=== PATIENT | female | born 1985 | race Caucasian/White ===

== ENCOUNTER 2017-06-20 03:42 | Inpatient (IN) ==
[2017-06-20] MEDS ORDERED: MORPHINE 2 MG/1 ML SYRINGE IV STA (04:43)
[2017-06-20] MEDS ORDERED: ONDANSETRON 4 MG/2 ML VIAL IV STA (04:43)
[2017-06-20] MEDS ORDERED: PIPERACILLIN/TAZOBACTAM 3,375 MG in SODIUM CHLORIDE 0.9% 100 ML IV STA (05:50)
[2017-06-20] MEDS ORDERED: cefOXitin 2,000 MG in SYRINGE 1 EACH IV ONE (06:33)
[2017-06-20] MEDS: metroNIDAZOLE INJ 500 MG in PREMIX 1 EACH IV SCH ×3 (07:15→21:55)
[2017-06-20] MEDS: DEXTROSE 5% LACTATED RINGERS 1,000 ML IV SCH ×2 (07:15→13:00)
[2017-06-20] MEDS ORDERED: INFLUENZA VIRUS VACCINE 0.5 ML SYRINGE IM ONE (07:36)
[2017-06-20] MEDS: MORPHINE 2 MG/1 ML SYRINGE IV PRN ×3 (08:37→21:55)
[2017-06-20] MEDS: PANTOPRAZOLE 40 MG TABLET PO SCH (09:28)
[2017-06-20] MEDS: PIPERACILLIN/TAZOBACTAM 3,375 MG in SODIUM CHLORIDE 0.9% 100 ML IV SCH ×2 (09:30→16:35)
[2017-06-20] MEDS: ONDANSETRON 4 MG/2 ML VIAL IV PRN ×2 (09:40→18:40)
[2017-06-20] MEDS ORDERED: TISSUE ADHESIVE 1 EACH APPLICATOR TOP ONE (10:54)
[2017-06-20] MEDS ORDERED: PROPOFOL 200 MG/20 ML VIAL IV ONE (14:20)
[2017-06-20] MEDS ORDERED: MIDAZOLAM 2 MG/2 ML VIAL ONE (14:21)
[2017-06-20] MEDS ORDERED: SEVOFLURANE 1 UNIT/15 MINUTE INH ONE (14:21)
[2017-06-20] MEDS ORDERED: fentaNYL 100 MCG/2 ML VIAL ONE ×2 (14:21)
[2017-06-20] MEDS ORDERED: NEOSTIGMINE 10 MG/10 ML VIAL ONE (14:22)
[2017-06-20] MEDS ORDERED: ROCURONIUM 100 MG/10 ML VIAL IV ONE (14:22)
[2017-06-20] MEDS ORDERED: KETOROLAC 30 MG/1 ML VIAL ONE (14:22)
[2017-06-20] MEDS ORDERED: GLYCOPYRROLATE 0.4 MG/2 ML VIAL ONE ×2 (14:22)
[2017-06-20] MEDS ORDERED: SUCCINYLCHOLINE 200 MG/10 ML VIAL ONE (14:22)
[2017-06-20] MEDS ORDERED: ONDANSETRON 4 MG/2 ML VIAL IV PRN ×2 (14:35→15:00)
[2017-06-20] MEDS ORDERED: HYDROmorphone 2 MG/1 ML VIAL IV PRN (14:35)
[2017-06-20] MEDS ORDERED: HYDROmorphone 2 MG/1 ML VIAL ONE (14:38)
[2017-06-20] MEDS ORDERED: ONDANSETRON 4 MG/2 ML VIAL ONE (14:38)
[2017-06-20] MEDS: HYDROmorphone 2 MG/1 ML VIAL IV PRN ×4 (14:40→15:00)
[2017-06-20] MEDS ORDERED: diphenhydrAMINE CAP 25 MG CAPSULE PO PRN (16:42)
[2017-06-21] MEDS: PIPERACILLIN/TAZOBACTAM 3,375 MG in SODIUM CHLORIDE 0.9% 100 ML IV SCH ×3 (00:45→18:18)
[2017-06-21] MEDS: ONDANSETRON 4 MG/2 ML VIAL IV PRN ×2 (00:45→14:13)
[2017-06-21] MEDS: metroNIDAZOLE INJ 500 MG in PREMIX 1 EACH IV SCH ×3 (05:50→22:51)
[2017-06-21] MEDS: DEXTROSE 5% LACTATED RINGERS 1,000 ML IV SCH ×4 (06:03→15:53)
[2017-06-21 06:14] LABS: Basophils % 0.1 % (0.0-0.8); Eosinophils % 0.4 % (0.00-10.9); Hematocrit 32.9 VOL% (35.7-47.0); Hemoglobin 10.8 GM/DL (12.0-16.0); Immature Granulocytes % 0.4 %; Immature Granulocytes Absolute 0.04 #; Lymphocytes # 1.3 10*3/uL (1.4-4.0); Lymphocytes % 13.3 % (21.3-54.2); Mean Corpuscular HGB Conc 32.8 GM/DL (32-36); Mean Corpuscular Hemoglobin 30 PG (27-34); Mean Corpuscular Volume 92.4 FL (87-102); Mean Platelet Volume 10.1 FL (9.6-12.0); Monocytes # 0.7 10*3/uL (0.11-0.8); Monocytes % 7.3 % (1.7-12.7); Neutrophils # 7.6 10*3/uL (1.4-7.4); Neutrophils % 78.5 % (38.7-73.9); Platelet Count 297 T/CUMM (130-400); Red Blood Count 3.56 MC/CUMM (3.8-5.5); White Blood Count 9.7 T/CUMM (4-12)
[2017-06-21 06:53] LABS: Albumin 2.9 G/DL (3.4-5.0); Bilirubin,Total 0.8 MG/DL (0.2-1.0); Calcium 8.6 MG/DL (8.5-10.1); Osmolality,Calculated 281.1 MOS/KG (273-304); Potassium 3.8 MMOL/L (3.5-5.1)
[2017-06-21] MEDS: MORPHINE 2 MG/1 ML SYRINGE IV PRN ×3 (08:33→20:27)
[2017-06-21] MEDS: PANTOPRAZOLE 40 MG TABLET PO SCH (08:33)
[2017-06-22] MEDS: ONDANSETRON 4 MG/2 ML VIAL IV PRN ×3 (00:35→19:15)
[2017-06-22] MEDS: MORPHINE 2 MG/1 ML SYRINGE IV PRN ×2 (00:37→06:53)
[2017-06-22] MEDS: PIPERACILLIN/TAZOBACTAM 3,375 MG in SODIUM CHLORIDE 0.9% 100 ML IV SCH ×3 (02:40→17:30)
[2017-06-22] MEDS: DEXTROSE 5% LACTATED RINGERS 1,000 ML IV SCH ×2 (05:08→11:00)
[2017-06-22 06:53] LABS: Basophils % 0.4 % (0.0-0.8); Eosinophils # 0.3 10*3/uL (0.0-0.87); Eosinophils % 3.1 % (0.00-10.9); Hematocrit 30.8 VOL% (35.7-47.0); Immature Granulocytes % 0.5 %; Immature Granulocytes Absolute 0.04 #; Lymphocytes # 2.4 10*3/uL (1.4-4.0); Lymphocytes % 28.7 % (21.3-54.2); Mean Corpuscular HGB Conc 32.5 GM/DL (32-36); Mean Corpuscular Hemoglobin 30 PG (27-34); Mean Corpuscular Volume 91.9 FL (87-102); Mean Platelet Volume 10.2 FL (9.6-12.0); Monocytes # 0.8 10*3/uL (0.11-0.8); Monocytes % 10.1 % (1.7-12.7); Neutrophils # 4.8 10*3/uL (1.4-7.4); Neutrophils % 57.2 % (38.7-73.9); Platelet Count 290 T/CUMM (130-400); Red Blood Count 3.35 MC/CUMM (3.8-5.5); Red Cell Distribution Width 13.2 % (9.3-17.3); White Blood Count 8.3 T/CUMM (4-12)
[2017-06-22] MEDS: metroNIDAZOLE INJ 500 MG in PREMIX 1 EACH IV SCH ×3 (06:53→22:16)
[2017-06-22 07:14] LABS: Calcium 7.9 MG/DL (8.5-10.1); Magnesium 1.9 MG/DL (1.8-2.4); Osmolality,Calculated 281.1 MOS/KG (273-304); Potassium 3.9 MMOL/L (3.5-5.1)
[2017-06-22] MEDS: PANTOPRAZOLE 40 MG TABLET PO SCH (08:22)
[2017-06-22] MEDS ORDERED: MAGNESIUM HYDROXIDE SUSP 30 ML UDCUP PO PRN (18:09)
[2017-06-23] MEDS: PIPERACILLIN/TAZOBACTAM 3,375 MG in SODIUM CHLORIDE 0.9% 100 ML IV SCH ×3 (02:26→17:10)
[2017-06-23] MEDS: ONDANSETRON 4 MG/2 ML VIAL IV PRN ×3 (02:26→17:32)
[2017-06-23] MEDS: metroNIDAZOLE INJ 500 MG in PREMIX 1 EACH IV SCH ×2 (06:28→13:23)
[2017-06-23] MEDS: PANTOPRAZOLE 40 MG TABLET PO SCH (09:36)
[2017-06-23] MEDS: DEXTROSE 5% LACTATED RINGERS 1,000 ML IV SCH ×3 (09:40→22:05)
[2017-06-23] MEDS ORDERED: ACETAMINOPHEN 325 MG TABLET PO PRN (14:56)
[2017-06-23] MEDS: ACETAMINOPHEN 325 MG TABLET PO PRN ×2 (15:15→21:04)
[2017-06-23] MEDS: buPROPion SR 100 MG TABLET PO SCH (20:57)
[2017-06-24] MEDS: metroNIDAZOLE INJ 500 MG in PREMIX 1 EACH IV SCH (01:10)
[2017-06-24 05:02] LABS: Basophils % 0.4 % (0.0-0.8); Eosinophils # 0.4 10*3/uL (0.0-0.87); Eosinophils % 4.9 % (0.00-10.9); Hematocrit 30.2 VOL% (35.7-47.0); Hemoglobin 9.9 GM/DL (12.0-16.0); Immature Granulocytes % 0.3 %; Immature Granulocytes Absolute 0.02 #; Lymphocytes # 2.5 10*3/uL (1.4-4.0); Lymphocytes % 31.8 % (21.3-54.2); Mean Corpuscular HGB Conc 32.8 GM/DL (32-36); Mean Corpuscular Hemoglobin 30 PG (27-34); Mean Corpuscular Volume 92.1 FL (87-102); Mean Platelet Volume 9.6 FL (9.6-12.0); Monocytes # 0.5 10*3/uL (0.11-0.8); Monocytes % 6.6 % (1.7-12.7); Neutrophils # 4.4 10*3/uL (1.4-7.4); Platelet Count 293 T/CUMM (130-400); Red Blood Count 3.28 MC/CUMM (3.8-5.5); Red Cell Distribution Width 12.8 % (9.3-17.3); White Blood Count 7.9 T/CUMM (4-12)
[2017-06-24] MEDS: PIPERACILLIN/TAZOBACTAM 3,375 MG in SODIUM CHLORIDE 0.9% 100 ML IV SCH ×3 (05:15→20:43)
[2017-06-24 05:54] LABS: Albumin 2.5 G/DL (3.4-5.0); Bilirubin,Total 0.4 MG/DL (0.2-1.0); Calcium 8.3 MG/DL (8.5-10.1); Osmolality,Calculated 282.1 MOS/KG (273-304); Total Protein 5.2 G/DL (6.4-8.3)
[2017-06-24] MEDS: ACETAMINOPHEN 325 MG TABLET PO PRN ×2 (07:07→15:53)
[2017-06-24] MEDS: ONDANSETRON 4 MG/2 ML VIAL IV PRN ×3 (07:07→20:42)
[2017-06-24] MEDS: PANTOPRAZOLE 40 MG TABLET PO SCH (08:25)
[2017-06-24] MEDS: buPROPion SR 100 MG TABLET PO SCH ×2 (08:25→20:43)
[2017-06-24] MEDS: DEXTROSE 5% LACTATED RINGERS 1,000 ML IV SCH (11:01)
[2017-06-25] MEDS: DEXTROSE 5% LACTATED RINGERS 1,000 ML IV SCH ×3 (03:01→04:48)
[2017-06-25] MEDS: ACETAMINOPHEN 325 MG TABLET PO PRN ×2 (03:07→09:15)
[2017-06-25] MEDS: PIPERACILLIN/TAZOBACTAM 3,375 MG in SODIUM CHLORIDE 0.9% 100 ML IV SCH (04:48)
[2017-06-25 07:37] VITALS: BP 122/71
[2017-06-25] MEDS: buPROPion SR 100 MG TABLET PO SCH (08:13)
[2017-06-25] MEDS: PANTOPRAZOLE 40 MG TABLET PO SCH (08:14)
== END 2017-06-25 11:20 | disposition home or self-care (01) | DRG 339 ==
LOC: EDUNIT# → EDBD → N.ED 03:42 → N.EDINP 04:38 → N.3E 05:02
PROVIDERS: ADMIT Surgery; ATTEND Surgery

== ENCOUNTER 2022-08-01 00:18 | Inpatient (IN) ==
[2022-08-01] MEDS ORDERED: methylPREDNISolone SOD SUC 125 MG/2 ML VIAL IV STA (01:47)
[2022-08-01] MEDS ORDERED: ALBUTEROL/IPRATROPIUM 3 ML NEB RESP TX STA (01:47)
[2022-08-01] MEDS ORDERED: ALBUTEROL 2.5 MG/3 ML NEB RESP TX ONE (01:51)
[2022-08-01] MEDS ORDERED: ALBUTEROL NEB SOLN 5 MG/ML 20 ML/BOTTLE CONT NEB SCH (02:00)
[2022-08-01 02:06] LABS: Basophils # 0.1 10*3/uL (0.0-0.2); Basophils % 0.4 % (0.0-0.8); Eosinophils # 0.7 10*3/uL (0.0-0.87); Hematocrit 30.5 VOL% (35.7-47.0); Hemoglobin 8.9 GM/DL (12.0-16.0); Immature Granulocytes % 0.4 %; Immature Granulocytes Absolute 0.05 #; Lymphocytes # 4.4 10*3/uL (1.4-4.0); Lymphocytes % 33.8 % (21.3-54.2); Mean Corpuscular HGB Conc 29.2 GM/DL (32-36); Mean Corpuscular Volume 77.6 FL (87-102); Mean Platelet Volume 8.7 FL (9.6-12.0); Monocytes # 1.1 10*3/uL (0.11-0.8); Monocytes % 8.2 % (1.7-12.7); Neutrophils % 52.2 % (38.7-73.9); Platelet Count 508 T/CUMM (130-400); Red Blood Count 3.93 MC/CUMM (3.8-5.5); Red Cell Distribution Width 18.8 % (9.3-17.3); White Blood Count 13.1 T/CUMM (4-12)
[2022-08-01 02:10] LABS: Bacteria,Urine Occasional /HPF (Few); Hyaline Casts,Urine 1 /LPF (0-3); Mucus,Urine Occasional /LPF (Occasional); RBC,Urine 1 /HPF (0-4); Squamous Epithelial Cell,Urine Occasional /HPF (0-10)
[2022-08-01 02:11] LABS: Bilirubin,Urine Negative (Negative); Blood, Urine Negative (Negative); Glucose,Urine (UA) Negative (Negative); Ketones,Urine Negative (Negative); Nitrite,Urine Negative (Negative); Protein,Urine Negative (Negative); Urine Appearance SL CLOUDY (Clear); Urine Color Yellow (Yellow); Urine Specific Gravity >= 1.030 (1.001-1.035); Urine Urobilinogen 0.2 eU/dL (<2.0); Urine pH 5.5 (4.5-8.0)
[2022-08-01 02:25] LABS: Alanine Aminotransferase 20 U/L (13-56); Albumin 3.6 G/DL (3.4-5.0); Alkaline Phosphatase 88 U/L (45-117); Aspartate Amino Transferase 27 U/L (0-37); Bilirubin,Total < 0.39 MG/DL (0.20-1.00); Blood Urea Nitrogen 20 MG/DL (7-18); Calcium 8.8 MG/DL (8.5-10.1); Carbon Dioxide 29 MMOL/L (21-32); Chloride 106 MMOL/L (98-107); Glucose 112 MG/DL (74-106); Osmolality,Calculated 282.4 MOS/KG (273-304); Potassium 4.1 MMOL/L (3.5-5.1); Sodium 140 MMOL/L (136-145); Total Protein 6.8 G/DL (6.4-8.2)
[2022-08-01 02:59] LABS: Barbiturates Screen,Urine Negative (Negative); Benzodiazepines Screen,Urine Positive (Negative); Cannabinoid Screen,Urine Negative (Negative); Opiate Screen,Urine Positive (Negative)
[2022-08-01] MEDS ORDERED: MORPHINE 2 MG/1 ML SYRINGE IV PRN (05:07)
[2022-08-01] MEDS ORDERED: ONDANSETRON 4 MG/2 ML VIAL IV PRN (05:07)
[2022-08-01] MEDS: ALBUTEROL/IPRATROPIUM 3 ML NEB RESP TX SCH ×3 (07:55→19:40)
[2022-08-01] MEDS ORDERED: DEXTROAMPHETAMINE AMPHETAMINE 20 MG PO SCH (09:00)
[2022-08-01] MEDS: ESCITALOPRAM 10 MG TABLET PO SCH (09:17)
[2022-08-01] MEDS: LEVOFLOXACIN INJ 750 MG/150 ML PREMIX IV SCH (09:17)
[2022-08-01] MEDS: ALPRAZolam 0.5 MG TABLET PO SCH ×2 (09:17→14:01)
[2022-08-01] MEDS: PANTOPRAZOLE 40 MG TABLET PO SCH (09:18)
[2022-08-01] MEDS: methylPREDNISolone SOD SUC 40 MG/1 ML VIAL IV SCH ×2 (12:05→20:26)
[2022-08-01] MEDS: BENZONATATE 100 MG CAPSULE PO PRN (18:20)
[2022-08-01] MEDS: ALPRAZolam 0.5 MG TABLET PO PRN (20:24)
[2022-08-01] MEDS ORDERED: tiZANidine 4 MG TABLET PO ONE (20:33)
[2022-08-01] MEDS: ZALEPLON 5 MG CAPSULE PO PRN (20:55)
[2022-08-01] MEDS ORDERED: tiZANidine 4 MG TABLET PO SCH (21:00)
[2022-08-02] MEDS: ALBUTEROL/IPRATROPIUM 3 ML NEB RESP TX SCH ×4 (00:30→19:05)
[2022-08-02] MEDS: methylPREDNISolone SOD SUC 40 MG/1 ML VIAL IV SCH ×3 (03:29→21:01)
[2022-08-02 04:58] LABS: Basophils % 0.1 % (0.0-0.8); Hematocrit 28.2 VOL% (35.7-47.0); Hemoglobin 8.5 GM/DL (12.0-16.0); Immature Granulocytes % 0.8 %; Immature Granulocytes Absolute 0.13 #; Lymphocytes # 0.6 10*3/uL (1.4-4.0); Lymphocytes % 3.2 % (21.3-54.2); Mean Corpuscular HGB Conc 30.1 GM/DL (32-36); Mean Corpuscular Volume 76.6 FL (87-102); Mean Platelet Volume 8.9 FL (9.6-12.0); Monocytes # 0.7 10*3/uL (0.11-0.8); Monocytes % 4.3 % (1.7-12.7); Neutrophils % 91.6 % (38.7-73.9); Platelet Count 483 T/CUMM (130-400); Red Blood Count 3.68 MC/CUMM (3.8-5.5); Red Cell Distribution Width 18.9 % (9.3-17.3); White Blood Count 16.9 T/CUMM (4-12)
[2022-08-02 05:23] LABS: Hypochromia 1+; Lymphocytes 1 % (20-55); Microcytosis 1+; Platelet Estimate Adequate; Total Cells Counted 100
[2022-08-02 05:25] LABS: Calcium 9.4 MG/DL (8.5-10.1); Osmolality,Calculated 277.8 MOS/KG (273-304); Potassium 4.3 MMOL/L (3.5-5.1)
[2022-08-02 05:30] LABS: % Iron Saturation 2.5 % (18-50)
[2022-08-02] MEDS: ESCITALOPRAM 10 MG TABLET PO SCH (09:08)
[2022-08-02] MEDS: PANTOPRAZOLE 40 MG TABLET PO SCH (09:08)
[2022-08-02] MEDS: IRON (CARBONYL)/VIT C/B12/FA TABLET PO SCH (09:08)
[2022-08-02] MEDS: LEVOFLOXACIN INJ 750 MG/150 ML PREMIX IV SCH (09:09)
[2022-08-02] MEDS: FERRIC GLUCONATE COMPLEX 125 MG in SODIUM CHLORIDE 0.9% 100 ML IV SCH (10:48)
[2022-08-02] MEDS: ALPRAZolam 0.5 MG TABLET PO PRN (17:33)
[2022-08-02] MEDS: ZALEPLON 5 MG CAPSULE PO PRN (21:00)
[2022-08-02] MEDS: tiZANidine 4 MG TABLET PO SCH (21:00)
[2022-08-03] MEDS: BENZONATATE 100 MG CAPSULE PO PRN ×3 (02:21→22:10)
[2022-08-03] MEDS: methylPREDNISolone SOD SUC 40 MG/1 ML VIAL IV SCH ×3 (03:17→22:10)
[2022-08-03 06:10] LABS: Basophils % 0.1 % (0.0-0.8); Hematocrit 27.7 VOL% (35.7-47.0); Hemoglobin 8.4 GM/DL (12.0-16.0); Immature Granulocytes % 0.9 %; Immature Granulocytes Absolute 0.16 #; Lymphocytes # 0.6 10*3/uL (1.4-4.0); Lymphocytes % 3.4 % (21.3-54.2); Mean Corpuscular HGB Conc 30.3 GM/DL (32-36); Mean Corpuscular Volume 76.3 FL (87-102); Mean Platelet Volume 9.2 FL (9.6-12.0); Monocytes # 0.8 10*3/uL (0.11-0.8); Monocytes % 4.5 % (1.7-12.7); Neutrophils % 91.1 % (38.7-73.9); Platelet Count 497 T/CUMM (130-400); Red Blood Count 3.63 MC/CUMM (3.8-5.5); White Blood Count 18.5 T/CUMM (4-12)
[2022-08-03 06:24] LABS: Calcium 8.9 MG/DL (8.5-10.1); Osmolality,Calculated 282.5 MOS/KG (273-304); Potassium 4.2 MMOL/L (3.5-5.1)
[2022-08-03 06:55] LABS: Hypochromia 1+; Lymphocytes 4 % (20-55); Microcytosis 1+; Platelet Estimate Adequate; Total Cells Counted 100
[2022-08-03] MEDS: ALBUTEROL/IPRATROPIUM 3 ML NEB RESP TX SCH ×4 (07:45→19:35)
[2022-08-03] MEDS: FERRIC GLUCONATE COMPLEX 125 MG in SODIUM CHLORIDE 0.9% 100 ML IV SCH (09:49)
[2022-08-03] MEDS: IRON (CARBONYL)/VIT C/B12/FA TABLET PO SCH (09:52)
[2022-08-03] MEDS: ESCITALOPRAM 10 MG TABLET PO SCH (09:52)
[2022-08-03] MEDS: AZITHROMYCIN 250 MG TABLET PO SCH (09:52)
[2022-08-03] MEDS: PANTOPRAZOLE 40 MG TABLET PO SCH (09:52)
[2022-08-03] MEDS: ALPRAZolam 0.5 MG TABLET PO PRN ×2 (10:12→23:37)
[2022-08-03] MEDS ORDERED: DEXTROSE 10% 250 ML BAG IV PRN (10:34)
[2022-08-03] MEDS ORDERED: GLUCAGON 1 MG VIAL IM PRN (10:34)
[2022-08-03] MEDS: ACETAMINOPHEN 325 MG TABLET PO PRN (12:09)
[2022-08-03] MEDS: INSULIN LISPRO 100 UNIT/ML SUBCUT SCH ×3 (12:10→22:16)
[2022-08-03] MEDS: tiZANidine 4 MG TABLET PO SCH (22:10)
[2022-08-03] MEDS: ZALEPLON 5 MG CAPSULE PO PRN (23:37)
[2022-08-04] MEDS: methylPREDNISolone SOD SUC 40 MG/1 ML VIAL IV SCH ×2 (04:38→17:08)
[2022-08-04] MEDS: BENZONATATE 100 MG CAPSULE PO PRN ×3 (05:41→23:21)
[2022-08-04 07:59] LABS: Basophils % 0.1 % (0.0-0.8); Hematocrit 30.3 VOL% (35.7-47.0); Hemoglobin 9.2 GM/DL (12.0-16.0); Immature Granulocytes % 1.2 %; Immature Granulocytes Absolute 0.17 #; Lymphocytes # 0.7 10*3/uL (1.4-4.0); Lymphocytes % 4.9 % (21.3-54.2); Mean Corpuscular HGB Conc 30.4 GM/DL (32-36); Mean Corpuscular Volume 76.1 FL (87-102); Mean Platelet Volume 8.8 FL (9.6-12.0); Monocytes # 0.7 10*3/uL (0.11-0.8); Monocytes % 5.2 % (1.7-12.7); NRBC # 0.02 10*3/uL; Neutrophils % 88.6 % (38.7-73.9); Platelet Count 511 T/CUMM (130-400); Red Blood Count 3.98 MC/CUMM (3.8-5.5); Red Cell Distribution Width 19.4 % (9.3-17.3); White Blood Count 14.2 T/CUMM (4-12)
[2022-08-04] MEDS: INSULIN LISPRO 100 UNIT/ML SUBCUT SCH ×4 (08:01→23:21)
[2022-08-04 08:12] LABS: Calcium 8.8 MG/DL (8.5-10.1); Osmolality,Calculated 282.4 MOS/KG (273-304); Potassium 3.7 MMOL/L (3.5-5.1)
[2022-08-04 08:18] LABS: Hypochromia 1+; Lymphocytes 4 % (20-55); Microcytosis 1+; Total Cells Counted 100
[2022-08-04 08:19] LABS: Ovalocytes Slight; Platelet Estimate Increased
[2022-08-04] MEDS: ALBUTEROL/IPRATROPIUM 3 ML NEB RESP TX SCH ×4 (08:38→19:30)
[2022-08-04] MEDS: ESCITALOPRAM 10 MG TABLET PO SCH (08:56)
[2022-08-04] MEDS: IRON (CARBONYL)/VIT C/B12/FA TABLET PO SCH (08:56)
[2022-08-04] MEDS: AZITHROMYCIN 250 MG TABLET PO SCH (08:56)
[2022-08-04] MEDS: PANTOPRAZOLE 40 MG TABLET PO SCH (08:56)
[2022-08-04] MEDS ORDERED: methylPREDNISolone SOD SUC 125 MG/2 ML VIAL IV SCH ×2 (09:00→17:00)
[2022-08-04] MEDS: ALPRAZolam 0.5 MG TABLET PO PRN ×3 (09:00→23:18)
[2022-08-04] MEDS: FERRIC GLUCONATE COMPLEX 125 MG in SODIUM CHLORIDE 0.9% 100 ML IV SCH (09:05)
[2022-08-04] MEDS: RACEPINEPHRINE 0.5 ML NEB RESP TX SCH ×2 (10:30→15:51)
[2022-08-04] MEDS: ENOXAPARIN 40 MG/0.4 ML SYRINGE SUBCUT SCH (11:06)
[2022-08-04] MEDS: ACETAMINOPHEN 325 MG TABLET PO PRN (17:13)
[2022-08-04] MEDS ORDERED: RACEPINEPHRINE 0.5 ML NEB RESP TX ONE (22:51)
[2022-08-04] MEDS: tiZANidine 4 MG TABLET PO SCH (23:18)
[2022-08-04] MEDS: ZALEPLON 5 MG CAPSULE PO PRN (23:18)
[2022-08-05] MEDS: RACEPINEPHRINE 0.5 ML NEB RESP TX SCH ×4 (00:05→19:05)
[2022-08-05] MEDS: methylPREDNISolone SOD SUC 40 MG/1 ML VIAL IV SCH ×3 (00:13→17:02)
[2022-08-05 05:12] LABS: Basophils % 0.1 % (0.0-0.8); Hematocrit 29.5 VOL% (35.7-47.0); Hemoglobin 8.8 GM/DL (12.0-16.0); Immature Granulocytes % 1.8 %; Immature Granulocytes Absolute 0.26 #; Lymphocytes # 0.9 10*3/uL (1.4-4.0); Lymphocytes % 6.1 % (21.3-54.2); Mean Corpuscular HGB Conc 29.8 GM/DL (32-36); Mean Platelet Volume 9.1 FL (9.6-12.0); Monocytes # 1.1 10*3/uL (0.11-0.8); Monocytes % 7.4 % (1.7-12.7); NRBC # 0.02 10*3/uL; Neutrophils % 84.6 % (38.7-73.9); Platelet Count 494 T/CUMM (130-400); Red Blood Count 3.78 MC/CUMM (3.8-5.5); Red Cell Distribution Width 19.6 % (9.3-17.3); White Blood Count 14.7 T/CUMM (4-12)
[2022-08-05 05:27] LABS: Calcium 8.7 MG/DL (8.5-10.1); Osmolality,Calculated 284.5 MOS/KG (273-304); Potassium 3.6 MMOL/L (3.5-5.1)
[2022-08-05] MEDS: ALBUTEROL/IPRATROPIUM 3 ML NEB RESP TX SCH ×4 (07:15→19:05)
[2022-08-05] MEDS ORDERED: FUROSEMIDE 40 MG/4 ML VIAL IV ONE (07:51)
[2022-08-05] MEDS: INSULIN LISPRO 100 UNIT/ML SUBCUT SCH ×4 (08:06→20:22)
[2022-08-05] MEDS: ESCITALOPRAM 10 MG TABLET PO SCH (08:36)
[2022-08-05] MEDS: AZITHROMYCIN 250 MG TABLET PO SCH (08:36)
[2022-08-05] MEDS: IRON (CARBONYL)/VIT C/B12/FA TABLET PO SCH (08:37)
[2022-08-05] MEDS: PANTOPRAZOLE 40 MG TABLET PO SCH (08:37)
[2022-08-05] MEDS: ACETAMINOPHEN 325 MG TABLET PO PRN (08:37)
[2022-08-05] MEDS: ALPRAZolam 0.5 MG TABLET PO PRN ×3 (08:48→23:04)
[2022-08-05] MEDS: FERRIC GLUCONATE COMPLEX 125 MG in SODIUM CHLORIDE 0.9% 100 ML IV SCH (08:49)
[2022-08-05] MEDS: guaiFENesin/CODEINE 5 ML LIQUID PO PRN ×2 (11:33→23:04)
[2022-08-05] MEDS: ENOXAPARIN 40 MG/0.4 ML SYRINGE SUBCUT SCH (11:52)
[2022-08-05] MEDS: ZALEPLON 5 MG CAPSULE PO PRN (23:04)
[2022-08-05] MEDS: BENZONATATE 100 MG CAPSULE PO PRN (23:04)
[2022-08-05] MEDS: tiZANidine 4 MG TABLET PO SCH (23:04)
[2022-08-06] MEDS: RACEPINEPHRINE 0.5 ML NEB RESP TX SCH ×4 (00:10→19:13)
[2022-08-06] MEDS: ALBUTEROL/IPRATROPIUM 3 ML NEB RESP TX SCH ×4 (00:10→19:12)
[2022-08-06] MEDS: methylPREDNISolone SOD SUC 40 MG/1 ML VIAL IV SCH ×3 (00:59→18:21)
[2022-08-06] MEDS: NYSTATIN 500,000 UNIT/5 ML UDCUP SWISH/SWAL SCH ×5 (01:13→20:26)
[2022-08-06] MEDS ORDERED: MEPERIDINE 50 MG/1 ML VIAL IM ONE (07:00)
[2022-08-06] MEDS ORDERED: PROMETHAZINE 25 MG/1 ML VIAL IM ONE (07:00)
[2022-08-06] MEDS ORDERED: LIDOCAINE 2% 20 ML VIAL RESP TX ONE (07:30)
[2022-08-06] MEDS ORDERED: LIDOCAINE 1% 20 ML VIAL MISC INJ ONE (07:30)
[2022-08-06] MEDS ORDERED: LIDOCAINE 2% VISCOUS 100 ML BOTTLE SWISH/SPIT ONE (07:30)
[2022-08-06] MEDS ORDERED: MIDAZOLAM 2 MG/2 ML VIAL IV ONE (07:30)
[2022-08-06] MEDS ORDERED: NYSTATIN 500,000 UNIT/5 ML UDCUP SWISH/SWAL SCH (09:00)
[2022-08-06] MEDS: INSULIN LISPRO 100 UNIT/ML SUBCUT SCH ×4 (10:15→20:25)
[2022-08-06] MEDS: AZITHROMYCIN 250 MG TABLET PO SCH (10:52)
[2022-08-06] MEDS: IRON (CARBONYL)/VIT C/B12/FA TABLET PO SCH (10:52)
[2022-08-06] MEDS: ESCITALOPRAM 10 MG TABLET PO SCH (10:52)
[2022-08-06] MEDS: PANTOPRAZOLE 40 MG TABLET PO SCH (10:52)
[2022-08-06] MEDS: FERRIC GLUCONATE COMPLEX 125 MG in SODIUM CHLORIDE 0.9% 100 ML IV SCH (10:58)
[2022-08-06] MEDS: guaiFENesin/CODEINE 5 ML LIQUID PO PRN (11:20)
[2022-08-06] MEDS: ALPRAZolam 0.5 MG TABLET PO PRN ×2 (11:20→23:36)
[2022-08-06] MEDS: ENOXAPARIN 40 MG/0.4 ML SYRINGE SUBCUT SCH (12:01)
[2022-08-06] MEDS: tiZANidine 4 MG TABLET PO SCH (20:29)
[2022-08-06] MEDS: ZALEPLON 5 MG CAPSULE PO PRN (23:34)
[2022-08-06] MEDS: BENZONATATE 100 MG CAPSULE PO PRN (23:34)
[2022-08-07] MEDS: RACEPINEPHRINE 0.5 ML NEB RESP TX SCH ×3 (00:23→12:35)
[2022-08-07] MEDS: ALBUTEROL/IPRATROPIUM 3 ML NEB RESP TX SCH ×3 (00:23→12:35)
[2022-08-07] MEDS: methylPREDNISolone SOD SUC 40 MG/1 ML VIAL IV SCH (00:42)
[2022-08-07] MEDS: ZALEPLON 5 MG CAPSULE PO PRN (00:49)
[2022-08-07] MEDS: BENZONATATE 100 MG CAPSULE PO PRN (00:49)
[2022-08-07 04:01] LABS: Basophils % 0.1 % (0.0-0.8); Hematocrit 30.8 VOL% (35.7-47.0); Hemoglobin 9.3 GM/DL (12.0-16.0); Immature Granulocytes % 1.4 %; Immature Granulocytes Absolute 0.22 #; Lymphocytes # 0.4 10*3/uL (1.4-4.0); Lymphocytes % 2.6 % (21.3-54.2); Mean Corpuscular HGB Conc 30.2 GM/DL (32-36); Mean Platelet Volume 9.1 FL (9.6-12.0); Monocytes # 0.9 10*3/uL (0.11-0.8); Monocytes % 5.8 % (1.7-12.7); Neutrophils % 90.1 % (38.7-73.9); Platelet Count 436 T/CUMM (130-400); White Blood Count 15.3 T/CUMM (4-12)
[2022-08-07 04:15] LABS: Calcium 8.5 MG/DL (8.5-10.1); Osmolality,Calculated 293.4 MOS/KG (273-304); Potassium 3.6 MMOL/L (3.5-5.1)
[2022-08-07 04:25] LABS: Anisocytosis 1+; Band Neutrophils 2 % (0-10); Hypochromia 1+; Lymphocytes 4 % (20-55); Microcytosis 1+; Tear Drop Cells Slight; Total Cells Counted 100
[2022-08-07 04:26] LABS: Ovalocytes Slight
[2022-08-07 04:27] LABS: Target Cells Slight
[2022-08-07] MEDS: PANTOPRAZOLE 40 MG TABLET PO SCH (08:30)
[2022-08-07] MEDS: AZITHROMYCIN 250 MG TABLET PO SCH (08:30)
[2022-08-07] MEDS: IRON (CARBONYL)/VIT C/B12/FA TABLET PO SCH (08:30)
[2022-08-07] MEDS: ESCITALOPRAM 10 MG TABLET PO SCH (08:31)
[2022-08-07] MEDS: ALPRAZolam 0.5 MG TABLET PO PRN (08:31)
[2022-08-07] MEDS: NYSTATIN 500,000 UNIT/5 ML UDCUP SWISH/SWAL SCH (08:31)
[2022-08-07] MEDS: ENOXAPARIN 40 MG/0.4 ML SYRINGE SUBCUT SCH (08:38)
[2022-08-07] MEDS: INSULIN LISPRO 100 UNIT/ML SUBCUT SCH ×2 (08:39→11:48)
[2022-08-07] MEDS ORDERED: BUDESONIDE/FORMOTEROL 160-4.5 INHALER 6 GM INH SCH (09:00)
[2022-08-07] MEDS ORDERED: methylPREDNISolone SOD SUC 40 MG/1 ML VIAL IV SCH (09:00)
[2022-08-07 12:04] VITALS: BP 138/77
[2022-08-08 01:26] LABS: Phencyclidine Interpretation Negative.; Phencyclidine-by GC/MS Negative ng/mL (Cutoff: 10)
== END 2022-08-07 13:25 | disposition home or self-care (01) | DRG 202 ==
LOC: N.ED 00:18 → N.EDINP 00:18 → N.2E 13:18 → SUATTDRO 08-03 13:23
PROVIDERS: ADMIT Emergency Medicine; ATTEND Internal Medicine